=== PATIENT | female | born 1980 | race Caucasian/White ===

== ENCOUNTER 2020-12-15 20:20 | Emergency (ER) | payer MEDICAID ==
[~2020-12-15] VITALS: Ht 157.5 cm; Wt 81.8 kg
[2020-12-15 22:40] VITALS: BP 145/95
== END 2020-12-15 22:42 | disposition home or self-care (01) ==
LOC: ER 20:22
DX: M79.641 Pain in right hand (principal); G89.29 Other chronic pain; M54.9 Dorsalgia, unspecified; F17.210 Nicotine dependence, cigarettes, uncomplicated; J45.909 Unspecified asthma, uncomplicated; E07.9 Disorder of thyroid, unspecified; Z56.0 Unemployment, unspecified
CPT/HCPCS: 99281

== ENCOUNTER 2020-12-19 19:59 | Emergency (ER) | payer MEDICAID ==
[~2020-12-19] VITALS: Ht 157.5 cm; Wt 81.8 kg
[2020-12-19] MEDS ORDERED: morphine 4 MG/ML inj SYRINge IV ONE (22:00)
[2020-12-19] MEDS ORDERED: normal saline 1000ML IV soln IV ONE (22:00)
[2020-12-19] MEDS ORDERED: vancomycin/NS 1 GM ADD-VANTAGE 250 ML IV ONE (22:00)
[2020-12-19] MEDS ORDERED: piperacillin/tazo 3.375gm/50ml 50 ML IV ONE (22:00)
[2020-12-19 22:31] LABS: BASOPHILS % (AUTO) 0.4 % (0-1); EOSINOPHILS # (AUTO) 0.1 X10'3 (0-0.9); EOSINOPHILS % (AUTO) 1.2 % (0-6); HEMATOCRIT 39.1 % (35.0-45.0); HEMOGLOBIN 12.9 g/dl (12.0-16.0); LYMPHOCYTES # (AUTO) 0.9 X10'3 (1.1-4.8); LYMPHOCYTES % (AUTO) 12.5 % (21-51); MEAN CORPUSCULAR HEMOGLOBIN 27.8 PG (27.0-31.0); MEAN CORPUSCULAR HGB CONC 33.1 g/dL (33.0-36.5); MEAN CORPUSCULAR VOLUME 84.1 FL (78-98); MEAN PLATELET VOLUME 7.7 FL (7.4-10.4); MONOCYTES # (AUTO) 0.6 X10'3 (0-0.9); MONOCYTES % (AUTO) 9.3 % (2-12); NEUTROPHILS # (AUTO) 5.3 X10'3 (1.8-7.7); NEUTROPHILS % (AUTO) 76.6 % (42-75); PLATELET COUNT 367 X10'3 (140-440); RED BLOOD COUNT 4.65 X10'6 (4.20-5.60); RED CELL DISTRIBUTION WIDTH 15.3 % (11.5-14.5); WHITE BLOOD COUNT 6.9 X10'3 (4.5-11.0)
[2020-12-19 22:37] LABS: ALANINE AMINOTRANSFERASE 24 U/L (12-78); ALBUMIN 3.2 G/DL (3.4-5.0); ALBUMIN/GLOBULIN RATIO 0.7 (1.1-1.5); ALKALINE PHOSPHATASE 109 IU/L (46-116); ANION GAP 9 (8-16); ASPARTATE AMINO TRANSFERASE 26 U/L (10-37); BILIRUBIN,TOTAL 0.3 MG/DL (0.1-1.0); BLOOD UREA NITROGEN 8 MG/DL (7-18); CALCIUM 8.6 MG/DL (8.5-10.1); CHLORIDE 103 MMOL/L (99-107); GLUCOSE 79 MG/DL (70-104); POTASSIUM 3.4 MMOL/L (3.5-5.1); SODIUM 139 MMOL/L (135-145); TOTAL PROTEIN 7.7 G/DL (6.4-8.2); eGFR 61 ML/MIN
[2020-12-19] MEDS ORDERED: iohexol 300mg/ml 100ml inj. ONE (22:42)
[2020-12-19 22:45] LABS: CLARITY,URINE CLOUDY (Clear); COLOR,URINE YELLOW (Yellow); GLUCOSE, URINE NEGATIVE (Neg); KETONES,URINE NEGATIVE (Neg); LEUKOCYTE ESTERASE ,URINE SMALL (Neg); NITRITES, URINE POSITIVE (Neg); OCCULT BLOOD,URINE SMALL (Neg); PH,URINE 5.5 (4.8-8.0); PROTEIN,URINE NEGATIVE (Neg); UROBILINOGEN,URINE 0.2 E.U/dL (0.2-1.0)
[2020-12-19 22:57] LABS: URINE AMPHETAMINE SCREEN POSITIVE (Neg); URINE BARBITUATE SCREEN NEGATIVE (Neg); URINE BENZODIAZEPINES SCREEN NEGATIVE (Neg); URINE CANNABINOID SCREEN POSITIVE (Neg); URINE COCAINE SCREEN NEGATIVE (Neg); URINE METHADONE SCREEN NEGATIVE (Neg); URINE OPIATE SCREEN NEGATIVE (Neg); URINE PHENCYCLIDINE SCREEN NEGATIVE (Neg)
[2020-12-19 23:18] LABS: UA COLLECTION TYPE CLN CATCH MIDSTREAM
[2020-12-19 23:21] LABS: BACTERIA,URINE 4+ /HPF (Neg); MUCUS STRANDS MANY /LPF (Neg); SQUAMOUS EPITHELIAL CELL,UR MANY /LPF (FEW)
[2020-12-19 23:22] LABS: AMORPHOUS URATES 1+
[2020-12-20] MEDS ORDERED: CEPH250T PO (00:05)
[2020-12-20] MEDS ORDERED: DOXY100C76 PO (00:05)
[2020-12-20] MEDS ORDERED: NAPR-56 PO (00:05)
--- NOTE | 2020-12-20 00:31 | NUR ---
Mouna HARRISON dc'd [facility] pt is being dc'd home with prescription for two antibiotics and follow up in 48hours for wound recheck
[2020-12-20 00:32] VITALS: BP 138/100
== END 2020-12-20 00:34 | disposition home or self-care (01) ==
LOC: ER 20:00
DX: L03.113 Cellulitis of right upper limb (principal); L02.511 Cutaneous abscess of right hand; N39.0 Urinary tract infection, site not specified; J45.909 Unspecified asthma, uncomplicated; G89.29 Other chronic pain; Z98.51 Tubal ligation status; Z98.890 Other specified postprocedural states; Z56.0 Unemployment, unspecified; Z88.5 Allergy status to narcotic agent; Z79.2 Long term (current) use of antibiotics; Z79.899 Other long term (current) drug therapy
CPT/HCPCS: 36415; 71045; 73130; 73201; 80053; 80305; 81001; 83605; 84145; 85025; 87040; 93005; 96365; 96368; 96375; 99285; J2270; J2543; J3370; J7030; Q9967

== ENCOUNTER 2022-04-20 22:06 | Emergency (ER) | payer MEDICAID ==
[~2022-04-20] VITALS: Ht 157.5 cm; Wt 97.5 kg
[2022-04-20] MEDS ORDERED: orphenadrine citrate 60mg/2ml inj. IM ONE (22:55)
[2022-04-20] MEDS ORDERED: ketorolac trometh inj. 60 MG/2 ML VIAL IM ONE (22:55)
[2022-04-20] MEDS ORDERED: ORPH100T2 PO (22:56)
[2022-04-20] MEDS ORDERED: NAPR-56 PO (22:56)
--- NOTE | 2022-04-20 23:05 | NUR ---
IM X2 GIVEN
== END 2022-04-20 23:29 | disposition home or self-care (01) ==
LOC: ER 22:07
DX: M54.59 Other low back pain (principal); R10.32 Left lower quadrant pain; G89.29 Other chronic pain; J45.909 Unspecified asthma, uncomplicated; E07.9 Disorder of thyroid, unspecified; Z88.5 Allergy status to narcotic agent; Z79.899 Other long term (current) drug therapy
CPT/HCPCS: 96372; 99284; J1885; J2360

== ENCOUNTER 2024-02-06 11:54 | Emergency (ER) | payer MEDICAID ==
[~2024-02-06] VITALS: Ht 157.5 cm; Wt 90.9 kg
[~2024-02-06 11:54] MED LIST: ORPH100T4 PO
[2024-02-06] MEDS ORDERED: CEPH-585 PO (12:04)
[2024-02-06] MEDS ORDERED: NAPR-56 PO (12:04)
[2024-02-06 12:24] VITALS: BP 120/85; PULSE 99; RESP 16; TEMP 97.8; O2SAT 100
== END 2024-02-06 12:25 | disposition home or self-care (01) ==
LOC: ER 11:54
DX: L03.116 Cellulitis of left lower limb (principal); J45.909 Unspecified asthma, uncomplicated; Z88.5 Allergy status to narcotic agent; Z79.1 Long term (current) use of non-steroidal anti-inflammatories (NSAID); Z79.899 Other long term (current) drug therapy; Z98.890 Other specified postprocedural states; Z98.51 Tubal ligation status
CPT/HCPCS: 99283

== ENCOUNTER 2024-02-13 22:22 | Emergency (ER) | payer MEDICAID ==
[~2024-02-13] VITALS: Ht 157.5 cm; Wt 90.9 kg
[~2024-02-13 22:22] MED LIST changes: +CEPH-585 PO; +NAPR-56 PO
[2024-02-13 22:44] VITALS: TEMP 98
[2024-02-13 23:33] LABS: BASOPHILS % (AUTO) 0.4 % (0-1); EOSINOPHILS % (AUTO) 0.7 % (0-6); HEMATOCRIT 36.1 % (35.0-45.0); HEMOGLOBIN 11.7 g/dl (12.0-16.0); LYMPHOCYTES # (AUTO) 0.7 X10'3 (1.1-4.8); LYMPHOCYTES % (AUTO) 10.4 % (21-51); MEAN CORPUSCULAR HEMOGLOBIN 27.5 PG (27.0-31.0); MEAN CORPUSCULAR HGB CONC 32.5 g/dL (33.0-36.5); MEAN CORPUSCULAR VOLUME 84.6 FL (78-98); MEAN PLATELET VOLUME 6.9 FL (7.4-10.4); MONOCYTES # (AUTO) 0.5 X10'3 (0-0.9); MONOCYTES % (AUTO) 6.3 % (2-12); NEUTROPHILS # (AUTO) 5.9 X10'3 (1.8-7.7); NEUTROPHILS % (AUTO) 82.2 % (42-75); PLATELET COUNT 580 X10'3 (140-440); RED BLOOD COUNT 4.27 X10'6 (4.20-5.60); RED CELL DISTRIBUTION WIDTH 15.5 % (11.5-14.5); WHITE BLOOD COUNT 7.2 X10'3 (4.5-11.0)
[2024-02-13 23:45] LABS: ALANINE AMINOTRANSFERASE 39 U/L (12-78); ALBUMIN 2.9 G/DL (3.4-5.0); ALBUMIN/GLOBULIN RATIO 0.6 (1.1-1.5); ALKALINE PHOSPHATASE 126 IU/L (46-116); ANION GAP 9 (8-16); ASPARTATE AMINO TRANSFERASE 23 U/L (10-37); BILIRUBIN,TOTAL 0.4 MG/DL (0.1-1.0); BLOOD UREA NITROGEN 13 MG/DL (7-18); BUN/CREATININE RATIO 10.7 (10.0-20.0); CHLORIDE 105 MMOL/L (99-107); CREATININE 1.22 MG/DL (0.40-0.90); GLUCOSE 88 MG/DL (70-104); POTASSIUM 3.3 MMOL/L (3.5-5.1); SODIUM 143 MMOL/L (135-145); TOTAL CARBON DIOXIDE 28.9 MMOL/L (24-32); eCRCL 46 ML/MIN; eGFR 48 ML/MIN
[2024-02-14] MEDS ORDERED: CEPH500C3 PO (01:54)
[2024-02-14] MEDS ORDERED: PRED50TA PO (01:54)
[2024-02-14] MEDS: cephalexin 250mg capsule PO ONE (02:11)
[2024-02-14] MEDS: predniSONE 20 mg tablet PO ONE (02:11)
[2024-02-14 02:15] VITALS: BP 139/88; PULSE 81; RESP 17; O2SAT 98
== END 2024-02-14 02:23 | disposition home or self-care (01) ==
LOC: ER 22:22
DX: I87.2 Venous insufficiency (chronic) (peripheral) (principal); L03.116 Cellulitis of left lower limb; R60.0 Localized edema; J45.909 Unspecified asthma, uncomplicated; G89.29 Other chronic pain; M54.9 Dorsalgia, unspecified; F17.200 Nicotine dependence, unspecified, uncomplicated; Z98.890 Other specified postprocedural states; Z98.51 Tubal ligation status; Z56.0 Unemployment, unspecified; Z88.8 Allergy status to other drugs, medicaments and biological substances; Z79.1 Long term (current) use of non-steroidal anti-inflammatories (NSAID); Z79.899 Other long term (current) drug therapy
CPT/HCPCS: 36415; 80053; 85025; 85379; 93971; 99285; J7512

== ENCOUNTER 2024-02-29 02:31 | Emergency (ER) | payer MEDICAID ==
[~2024-02-29] VITALS: Ht 157.5 cm; Wt 90.9 kg
[~2024-02-29 02:31] MED LIST changes: -CEPH-585 PO; +PRED50TA PO
[2024-02-29 02:36] VITALS: TEMP 98.1
[2024-02-29] MEDS ORDERED: SULF1TAB49 PO (03:18)
[2024-02-29] MEDS ORDERED: CLIN150C2 PO (03:18)
[2024-02-29] MEDS: sulfamethoxazole/trimethoprim DS (800/160mg) tablet PO ONE (03:26)
[2024-02-29] MEDS: clindamycin 150mg capsule PO ONE (03:26)
[2024-02-29] MEDS: ondansetron 4mg rapidly disintigrating tab PO ONE (03:27)
[2024-02-29 03:33] VITALS: BP 125/77; PULSE 84; RESP 16; O2SAT 100
== END 2024-02-29 03:31 | disposition home or self-care (01) ==
LOC: ER 02:33
DX: L03.116 Cellulitis of left lower limb (principal); J45.909 Unspecified asthma, uncomplicated; G89.29 Other chronic pain; M54.9 Dorsalgia, unspecified; Z88.5 Allergy status to narcotic agent; Z79.899 Other long term (current) drug therapy; Z98.890 Other specified postprocedural states; Z98.51 Tubal ligation status
CPT/HCPCS: 99284

== ENCOUNTER 2024-08-09 20:09 | Emergency (ER) | payer MEDICAID ==
[~2024-08-09] VITALS: Ht 157.5 cm; Wt 88.8 kg
[~2024-08-09 20:09] MED LIST changes: -NAPR-56 PO
[2024-08-09] MEDS: HYDROcodone/acetaminophen 10/325mg tab PO STA (21:14)
[2024-08-09 22:57] LABS: BASOPHILS # (AUTO) 0.1 X10'3 (0-0.2); BASOPHILS % (AUTO) 0.7 % (0-1); EOSINOPHILS % (AUTO) 0.5 % (0-6); HEMATOCRIT 36.7 % (35.0-45.0); HEMOGLOBIN 12.2 g/dl (12.0-16.0); LYMPHOCYTES % (AUTO) 12.2 % (21-51); MEAN CORPUSCULAR HEMOGLOBIN 26.3 PG (27.0-31.0); MEAN CORPUSCULAR HGB CONC 33.1 g/dL (33.0-36.5); MEAN CORPUSCULAR VOLUME 79.3 FL (78-98); MEAN PLATELET VOLUME 7.7 FL (7.4-10.4); MONOCYTES # (AUTO) 0.8 X10'3 (0-0.9); NEUTROPHILS # (AUTO) 6.1 X10'3 (1.8-7.7); NEUTROPHILS % (AUTO) 76.6 % (42-75); PLATELET COUNT 390 X10'3 (140-440); RED BLOOD COUNT 4.63 X10'6 (4.20-5.60); RED CELL DISTRIBUTION WIDTH 16.3 % (11.5-14.5)
[2024-08-09 23:03] LABS: ALBUMIN 3.1 G/DL (3.4-5.0); ANION GAP 12 (8-16); BLOOD UREA NITROGEN 13 MG/DL (7-18); BUN/CREATININE RATIO 13.4 (10.0-20.0); CALCIUM 8.6 MG/DL (8.5-10.1); CHLORIDE 103 MMOL/L (99-107); CREATININE 0.97 MG/DL (0.40-0.90); GLUCOSE 103 MG/DL (70-104); POTASSIUM 3.6 MMOL/L (3.5-5.1); SODIUM 138 MMOL/L (135-145); TOTAL CARBON DIOXIDE 23.1 MMOL/L (24-32); eCRCL 58 ML/MIN; eGFR 62 ML/MIN
[2024-08-10] MEDS ORDERED: CEPH-585 PO (01:22)
[2024-08-10] MEDS: ceFAZolin 1gm IM kit IM ONE (01:43)
[2024-08-10 01:49] VITALS: BP 126/87; PULSE 83; RESP 16; TEMP 97.9; O2SAT 100
== END 2024-08-10 01:51 | disposition home or self-care (01) ==
LOC: ER 20:09
DX: L03.116 Cellulitis of left lower limb (principal); J45.909 Unspecified asthma, uncomplicated; G89.29 Other chronic pain; M54.9 Dorsalgia, unspecified; Z88.5 Allergy status to narcotic agent; Z90.89 Acquired absence of other organs; Z98.51 Tubal ligation status; Z98.890 Other specified postprocedural states
CPT/HCPCS: 36415; 71045; 80048; 83605; 84145; 85025; 87040; 93971; 96372; 99285; J0690